=== PATIENT | male | born 2000 | race African-American/Black ===

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

== ENCOUNTER 2019-01-27 06:25 | Emergency (ER) | payer MEDICAID ==
[~2019-01-27] VITALS: Ht 165.1 cm; Wt 56.4 kg
[2019-01-27] MEDS ORDERED: MORPHINE SULFATE 4 MG/ML CPJ (NOT FOR IM USE) IV STA (07:08)
[2019-01-27] MEDS ORDERED: SODIUM CHLORIDE 0.9% 1,000 ML IV ONE (07:08)
[2019-01-27] MEDS ORDERED: ONDANSETRON HCL 4MG/2ML INJ IV STA (07:08)
[2019-01-27 07:51] LABS: BASOPHILS % 0.3 % (0.0-2.0); EOSINOPHILS % 0.3 % (0.0-5.0); HEMATOCRIT. 45.6 % (42.0-52.0); HEMOGLOBIN. 15.7 g/dL (14.0-18.0); LYMPHOCYTES % 9.9 % (20.0-50.0); MEAN CORPUSCULAR HEMOGLOBIN 28.6 pg (28.0-32.0); MEAN PLATELET VOLUME 8.2 fl (7.4-10.4); MONOCYTES % 4.4 % (2.0-8.0); NEUTROPHILS % 85.1 % (40.0-76.0); PLATELET 200 x1000/uL (130-400); RED CELL DISTRIBUTION WIDTH 13.3 % (11.6-14.6)
[2019-01-27 07:57] LABS: CHLORIDE 106 mEq/L (98-107)
[2019-01-27 09:09] LABS: CLARITY URINE CLEAR (CLEAR); COLOR URINE YELLOW (YELLOW); KETONES URINE 4+ (NEGATIVE); LEUKOCYTE ESTERASE URINE 1+ (NEGATIVE); NITRITE URINE NEGATIVE (NEGATIVE); OCCULT BLOOD URINE NEGATIVE (NEGATIVE); PROTEIN URINE TRACE (NEGATIVE); SPECIFIC GRAVITY URINE 1.028 (1.005-1.030); UROBILINOGEN URINE 0.2 E.U./dL (0.2-1.0)
[2019-01-27 09:10] VITALS: BP 108/62
[2019-01-27] MEDS ORDERED: POTASSIUM CHLORIDE 20MEQ TABLET SR PO ONE (09:30)
== END 2019-01-27 10:31 | disposition home or self-care (01) ==
LOC: ER 06:25
DX: K52.9 Noninfective gastroenteritis and colitis, unspecified (principal); E87.6 Hypokalemia; F12.10 Cannabis abuse, uncomplicated; J45.909 Unspecified asthma, uncomplicated
CPT/HCPCS: 36415; 74176; 80053; 81003; 83690; 85025; 87086; 96361; 96374; 96375; 99284; J2270; J2405; J7030

== ENCOUNTER 2024-05-13 04:04 | Emergency (ER) | payer MEDICAID ==
[~2024-05-13] VITALS: Ht 165.1 cm; Wt 78.0 kg
[2024-05-13 04:12] VITALS: O2SAT 99
[2024-05-13] MEDS: ONDANSETRON 4MG ODT PO ONE ×2 (04:43→05:30)
[2024-05-13] MEDS ORDERED: ONDA-239 PO (06:21)
[2024-05-13 06:50] VITALS: BP 113/83; PULSE 78; RESP 18; TEMP 36.8; O2SAT 100
== END 2024-05-13 06:50 | disposition home or self-care (01) ==
LOC: ER 04:07
DX: F10.129 Alcohol abuse with intoxication, unspecified (principal); F12.90 Cannabis use, unspecified, uncomplicated; Y90.9 Presence of alcohol in blood, level not specified
CPT/HCPCS: 99283; Q0162; Z7610